=== PATIENT | male | born 1945 | race Caucasian/White ===

== ENCOUNTER 2018-07-28 09:04 | Outpatient (CLI) | payer MEDICARE, OTHER ==
[2018-07-28] MEDS ORDERED: Gadobenate Dimeglumine 529 MG/1 ML (20ML VIAL) ONE (12:38)
--- NOTE | 2018-07-28 14:47 | MRI ---
PROSTATE MRI WITHOUT AND WITH CONTRAST: COMPARISON: None. HISTORY: Prostate cancer. The patient had biopsy 2 months ago. TECHNIQUE: Multiplanar, multisequence MR images were obtained in the pelvis/prostate without and with IV contras t. This examination was evaluated on a [employer] work station. FINDINGS: The prostate is not significantly enlarged. There is a small amount of high T1 signal within the pro state which represents blood products from prior biopsy. The fusion sequence and ADC map are limited secondary to artifact from a large amount of air being present in the patient's rectum at the time o f this examination. No suspicious lesion is seen on T2 sequences within either the central gland or peripheral zone of th e prostate. No obvious abnormality is seen on diffusion sequence or ADC map within the prostate. The seminal vesicles are intact without abnormality. No pelvic adenopathy is seen. The bones are un remarkable. IMPRESSION: PIRADS category 1 - very likely that a clinically significant cancer is present. POS: JESÚS
== END 2018-07-28 09:05 | disposition home or self-care (01) ==
LOC: TBSIIMAG 09:04
PROVIDERS: ATTEND Radiology Radiation Oncology
DX: C61 Malignant neoplasm of prostate (principal)
CPT/HCPCS: 72197; 82565; A9577